=== PATIENT | male | born 1950 | race Caucasian/White ===

== ENCOUNTER → 2017-06-28 | Outpatient (CLI) | payer BC ==
--- NOTE | 2017-06-28 16:03 | RAD ---
Three-phase bone scan and whole body bone scan Clinical indications: Right lower leg midshaft cellulitis for 3 weeks. Bilateral ankle pain worse on the right side for the past month. Patient fell with laceration injury. Focal cortical thickening of the medial cortex of the right tibia seen on recent radiographic study. 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 Technique: After IV infusion of 24 mCi of technetium 99m MDP, three-phase bone scan of both lower legs was performed. This is followed by delayed anterior and posterior whole body planar imaging. Comparison: No previous bone scan. Radiographic study of the right tibia and fibula. Findings: No hyperemia is seen. No abnormal blood pool accumulation is seen. No abnormal radiotracer uptake is seen within the medial cortex of the right tibia and therefore this appears to represent benign cortical thickening and not an osteoid osteoma. There is radiotracer accumulation involving the lateral aspect of the right ankle. No definite acute fracture was seen here on the recent radiographic study. Therefore, it is possible that this could represent a bone contusion or osteomyelitis if there is a nonhealing wound in this area. Note-the dynamic phase and blood flow phase did not include the ankle region. There is mild degenerative activity involving the medial aspect of both knees. There is mild degenerative activity involving the superior lateral aspect of the left hip joint. There is mild degenerative activity involving the AC joints bilaterally. There is no pattern of uptake to indicate osseous metastatic disease. Bilateral renal function is evident. IMPRESSION: Focal area of radiotracer activity is seen involving the lateral aspect of the right ankle which may represent the distal right fibula. This could be secondary to bone contusion or osteomyelitis if there is a nonhealing wound in this area. The finding seen within the medial aspect of the midshaft of the right tibia on the radiographic study is a benign finding and does not represent an osteoid osteoma.
== END | disposition home or self-care (01) ==
LOC: NM 09:03
PROVIDERS: ATTEND Nurse Practitioner Family
DX: L03.115 Cellulitis of right lower limb (principal); M25.572 Pain in left ankle and joints of left foot
CPT/HCPCS: 78306; 96374; A9503

== ENCOUNTER → 2018-01-02 | Outpatient (CLI) | payer MEDICARE | END | disposition home or self-care (01) | LOC: KCIC 11:52 | DX: M12.88 Other specific arthropathies, not elsewhere classified, other specified site (principal) | CPT/HCPCS: 72100 ==